=== PATIENT | male | born 1990 | race Caucasian/White ===

== ENCOUNTER 2023-11-10 17:53 | Emergency (ER) | payer OTHER, SELFPAY ==
[2023-11-10 17:56] VITALS: BP 129/80; PULSE 64; RESP 20; TEMP 36.9; O2SAT 100; BMI 23.0
[2023-11-10] MEDS: ADACEL DIPH,PERTUSS(ACELL),TET VAC/PF 0.5 ML ADULT SYRINGE IM (18:30)
--- NOTE | 2023-11-10 18:31 | ED_ITS ---
HPI - Wound/Laceration General Chief Complaint: Wound/Laceration Stated Complaint: Lacerations Time Seen by Provider: 11/10/23 18:01 Source: patient Mode of arrival: walk-in Limitations: no limitations History of Present Illness HPI narrative: Patient is a 32-year-old male presents to the emergency department for the evaluation of a small laceration to the volar left forearm, patient sustained a 1.5 cm laceration to the left volar forearm while attempting to cut a zip tie for his son's Marielena present with a pocket knife. Bleeding is well- controlled. Last tetanus approximately 10 years ago. No other associated injuries. Related Data Home Medications Medication Instructions Recorded Confirmed diazepam 10 mg tablet mg 11/10/23 sertraline 100 mg tablet 100 mg PO DAILY 11/10/23 11/10/23 Allergies Allergy/AdvReac Type Severity Reaction Status Date / Time No Known Drug Allergies Allergy Verified 11/10/23 17:58 Review of Systems ROS Constitutional Denies: fever or chills Ears, nose, mouth, and throat Denies: throat pain Cardiovascular Denies: chest pain Respiratory Denies: shortness of breath Gastrointestinal Denies: nausea or vomiting Musculoskeletal Denies: extremity pain or extremity swelling Integumentary/Breast Denies: rash Neurological Denies: headache PFSH PFSH Social History Smoking status: Heavy tobacco smoker Exam Narrative Exam Narrative: Gen.: Awake, alert, in no distress Head: Normocephalic, atraumatic ENT: Moist mucous membranes Respiratory: No respiratory distress Extremities: Moves extremities equally, 1.5 cm laceration of the left volar forearm with subcutaneous tissue exposure. No laceration of any vasculature noted, no tendon or bony exposure Psych: Normal mood and affect Neuro: No focal neuro deficit Skin: Warm, dry Constitutional Vital Signs, click to edit/add: Last Vital Signs Temp 98.5 F 11/10/23 17:56 Pulse 64 11/10/23 17:56 Resp 20 11/10/23 17:56 BP 129/80 11/10/23 17:56 Pulse Ox 100 11/10/23 17:56 Course Vital Signs Vital signs: Vital Signs Temperature 98.5 F 11/10/23 17:56 Pulse Rate 64 11/10/23 17:56 Respiratory Rate 20 11/10/23 17:56 Blood Pressure 129/80 11/10/23 17:56 Pulse Oximetry 100 11/10/23 17:56 Temperature 98.5 F 11/10/23 17:56 Pulse Rate 64 11/10/23 17:56 Respiratory Rate 20 11/10/23 17:56 Blood Pressure 129/80 11/10/23 17:56 Pulse Oximetry 100 11/10/23 17:56 MDM - Wound/Laceration MDM Narrative Medical decision making narrative: Laceration repair: Done under sterile conditions. The use of Shur-Clens prep the area. Local injection with lidocaine 1% was used, approximately 3 cc. The wound was irrigated copiously with normal saline. The wound was explored there was no evidence of foreign material. The laceration was approximated with 4-0 nylon. 2 simple interrupted sutures were placed. Patient tolerated the procedure well. The patient was neurovascularly intact post. the patient had bacitracin applied to the laceration and a dry sterile dressing was place. The patient will need to follow-up in the next 7-10 days for removal Tetanus updated in the ER. Please see procedure note for details for suture repair. Follow-up with PCP for suture removal in 7 to 10 days and return to the ER if symptoms change or worsen Medical Records Attestation: I reviewed the patient's medical records. Discharge Plan Discharge Chief Complaint: Wound/Laceration Clinical Impression: Laceration Patient Disposition: Home, Self-Care Time of Disposition Decision: 18:30 Condition: Good Prescriptions / Home Meds: No Action sertraline 100 mg tablet 100 mg PO DAILY diazepam 10 mg tablet Instructions: Care For Your Stitches (ED), Laceration (ED) Additional Instructions: Sutures removed in 7 to 10 days with your PCP Stand Alone Forms: Portal Instructions Referrals: Bhavik Walton MD [Primary Care Provider] - 1 week Discharge Date/Time: 11/10/23 18:38
[2023-11-10] MEDS: BACITRACIN 0.9 GM PACKET 1 PACKET TOPICAL (18:34)
[2023-11-10] MEDS: LIDOCAINE HCL 1% 100 MG/10 ML MDV INJ (18:34)
== END 2023-11-10 18:38 | disposition home or self-care (01) ==
PROVIDERS: Emergency Provider Emergency Medicine; PCP Family Medicine
DX: S51.812A Laceration without foreign body of left forearm, initial encounter (principal); W26.0XXA Contact with knife, initial encounter; Z79.899 Other long term (current) drug therapy; F17.210 Nicotine dependence, cigarettes, uncomplicated; Z23 Encounter for immunization
CPT/HCPCS: 12001; 90471; 90715; 99283

== ENCOUNTER 2024-01-16 09:11 | Outpatient (OUT) | payer OTHER, SELFPAY ==
--- OUTSIDE RECORDS SUMMARY | 2024-01-16 09:15 | XMS_ITS | CCD ---
Author Name Unknown Address [id number] [place] [address] Organization [facility] Care Team Providers Care Technical Aide Name Role Phone KI SCHWARTZ Unavailable Unavailable KI SCHWARTZ Unavailable Unavailable NONE, Unavailable Unavailable TIMMIS, DR CASH Attending Unavailable TIMMIS, DR CASH Consulting Unavailable HOY, DR ACOSTA Primary Care Unavailable TIMMIS, DR CASH Admitting Unavailable TIMMIS, DR CASH Attending Unavailable TIMMIS, DR CASH Consulting Unavailable HOY, DR ACOSTA Primary Care Unavailable TIMMIS, DR CASH Admitting Unavailable LONGDANIELA Consulting Unavailable HOY, DR ACOSTA Consulting Unavailable HOY, DR ACOSTA Primary Care Unavailable HOY, DR ACOSTA Admitting Unavailable HOY, DR ACOSTA Attending Unavailable HOY, DR ACOSTA Primary Care Unavailable HOY, DR ACOSTA Admitting Unavailable HOY, DR ACOSTA Attending Unavailable HOY, DR ACOSTA Primary Care Unavailable HOY, DR ACOSTA Admitting Unavailable HOY, DR ACOSTA Attending Unavailable TIMMIS, DR CASH Consulting Unavailable TIMMIS, DR CASH Admitting Unavailable HOY, DR ACOSTA Primary Care Unavailable TIMMIS, DR CASH Attending Unavailable LUCIAJIHAN LARSON Consulting Unavailable Dave Walton Primary Care Physician [phone] Ayana Burgess Attending Unavailable Ayana Burgess Attending Unavailable Allergies Allergy Classification Reported Allergen(s) Allergy Type Date of Onset Reaction(s) Facility (1 source) clindamycin Drug Allergy [facility] Repository (1 source) No Known Drug Allergies Drug allergy (disorder) [facility] Repository (1 source) No Known Food Allergies; Translations: [No Known Food Allergies] Food allergy (disorder) [facility] Repository (1 source) No Known Medication Allergies; Translations: [No Known Medication Allergies] Propensity to adverse reactions (disorder) [facility] Repository Medications Current Medications Medication Drug Class(es) Dates Sig (Normalized) Sig (Original) sertraline 100 mg oral tablet (2 sources) Serotonin Reuptake Inhibitor Start: 03-09-2023 take 1 mg by mouth once daily sertraline 100 mg Tab mg tab(s), Oral, Daily, Refills(s) 0 Start Date: 03/09/23 Status: Ordered traMADol hydrochloride 50 mg oral tablet (1 source) Opioid Agonist Start: 05-04-2023 take 1 tablet by mouth every six hours as needed for pain traMADOL 50 mg Tab 50 mg = 1 tab(s), Oral, q6hr, PRN as needed for pain, # 4 tab(s), Refills(s) 0, Pharmacy: [facility]/pharmacy #[id number], 178, cm, 03/11/23 10:06:00 EDT, Height/Length Dosing, 77, kg, 03/11/23 10:05:00 EDT, Weight Dosing Start Date: 05/04/23 Status: Ordered Completed/Discontinued Medications Medication Drug Class(es) Dates Sig (Normalized) Sig (Original) bacitracin 0.4 unt/mg / neomycin 0.0035 mg/mg / polymyxin b 10 unt/mg / pramoxine hydrochloride 0.01 mg/mg topical ointment (2 sources) Aminoglycoside Antibacterial, Polymyxin-class Antibacterial Start: 03-09-2023 bacitracin/neomy fiorella/polymyxin B/pramoxine topical 400 units-3.5 mg-10,000 units-10 mg/g ointment Topical, BID, Refill(s) 0 Start Date: 03/09/23 Status: Ordered Problems Active Problems Problem Classification Problem Date Documented Date Episodic/Chronic Anxiety disorders (1 source) Other specified anxiety disorders; Translations: [OTHER SPECIFIED ANXIETY DISORDERS] Onset: 08-26-2021 Chronic Contraceptive and procreative management (3 sources) Contraception status; Translations: [Encounter for other general counseling and advice on contraception] Onset: 03-11-2023 Episodic Mood disorders (1 source) Major depressive disorder, single episode, unspecified; Translations: [CINDY DEPRESS D/O SINGLE EPIS UNS] Onset: 07-15-2021 Chronic Residual codes; unclassified (1 source) Sleep apnea, unspecified; Translations: [SLEEP APNEA UNSPECIFIED] Onset: 08-26-2021 Chronic Residual codes; unclassified (4 sources) Obstructive sleep apnea (adult) (pediatric); Translations: [OBSTRUCTIVE SLEEP APNEA] Onset: 07-24-2021 Chronic Unclassified (1 source) PERSONAL HISTORY OF COVID-19; Translations: [PERSONAL HISTORY OF COVID-19] Onset: 08-26-2021 Unclassified (1 source) CONTACT W/AND (SUSP) EXPOS COVID-19; Translations: [CONTACT W/AND (SUSP) EXPOS COVID-19] Onset: 08-23-2021 Unclassified (2 sources) Patient encounter status 03-11-2023 Past or Other Problems Problem Classification Problem Date Documented Da te Episodic/Chronic Malaise and fatigue (1 source) Other fatigue; Translations: [OTHER FATIGUE] Onset: 07-15-2021 Episodic Other aftercare (1 source) 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; Translations: [OTH [facility] CURRENT DRUG THERAPY] Onset: 08-26-2021 Episodic Other lower respiratory disease (4 sources) Snoring; Translations: [SNORING] Onset: 07-09-2021 Episodic Other upper respiratory disease (5 sources) Deviated nasal septum; Translations: [DEVIATED NASAL SEPTUM] Onset: 08-19-2021 Episodic Other upper respiratory disease (1 source) Hypertrophy of nasal turbinates; Translations: [HYPERTROPHY OF NASAL TURBINATES] Onset: 08-26-2021 Episodic Results Test Name Value Interpretation Reference Range Facility Consent for Procedure/Surger [facility] 05-11-2023 Consent for Procedure/Surgery [id number] .[id number]:127 Normal [facility] Ambulatory Visit Summaryon 0 05-08-2023 Ambulatory Visit Summary ЕКАТЕРИНА JORGENSENY Laurence :1990 Visit Date:05/08/2023 Ambulatory Visit Instructions Your Diagnosis Encounter for vasectomy Your Care Team Attending Physician - Aditya TOLEDO, Ayana Meraz Primary Care Physician - Dave Walton MD This Is Your Medications List Contact prescribing physician if questions or concerns bacitracin/neomycin/p olymyxin B/pramoxine top (bacitracin/neomycin/ polymyxin B/pramoxine topical 400 units-3.5 mg-10,000 units-10 mg/g ointment) sertraline (sertraline 100 mg Tab) tramadol (traMADOL 50 mg Tab) [Image Removed: STOP]Stop taking these medications diazepam (Valium 10 mg Tab) Procedures Performed Vasectomy (05/08/2023), Knee, Splenectomy. Discharge Vitals Heart Rate (Peripheral) 48 Blood Pressure 112/80 Height 178 cm Height 70 in Weight 77 kg Weight 169.4 lb BMI 24.3 What to do next You Need to Schedule the Following Appointments Follow Up with Aditya TOLEDO, IVORY Craig, URO When: Comments: PRN Where: Medications What How Much When Instructions Unchanged bacitracin/ neomycin/ polymyxin B/ pramoxine top (bacitracin/ neomycin/ polymyxin B/ pramoxine topical 400 units-3.5 mg-10,000 units-10 mg/ g ointment) Topical 2 times a day Contact prescribing physician if questions or concerns Unchanged sertraline (sertraline 100 mg Tab) By Mouth Every day Contact prescribing physician if questions or concerns Unchanged tramadol (traMADOL 50 mg Tab) 1 Tablets By Mouth Every 6 hours as needed for as needed for pain Contact prescribing physician if questions or concerns What How Much When Comments Stop Taking diazepam (Valium 10 mg Tab) See instructions take 1 hour prior to scheduled procedure if needed Allergies No Known Medication Allergies Problems Ongoing - Any problem that you are currently receiving treatment for. Encounter for vasectomy Encounter for vasectomy assessment Education Materials Vasectomy, Care After This sheet gives you information about how to care for yourself after your procedure. Your health care provider may also give you more specific instructions. If you have problems or questions, contact your health care provider. What can I expect after the procedure? After the procedure, it is common to have: ? Mild pain, swelling, or discomfort in your scrotum or redness on your scrotum. ? Some blood coming from your incisions or puncture sites for 1 or 2 days. ? Blood in your semen. Follow these instructions at home: Medicines ? Take slqf-waq-huvjtgk and prescription medicines only as told by your health care provider. ? Avoid taking any medicines that contain aspirin or NSAIDs, such as ibuprofen. These medicines can make bleeding worse. Activity ? For the first 2 days after surgery, avoid physical activity and exercise that requires a lot of energy. Ask your health care provider what activities are safe for you. ? Do not take part in sports or perform heavy physical labor until your pain has improved, or until your health care provider says it is okay. ? You may have limits on the amount of weight you can lift as told by your health care provider. ? Do not ejaculate for at least 1 week after the procedure, or for as long as you are told. ? You may resume sexual activity 7?10 days after your procedure, or when your health care provider approves. Use a different method of control (contraception) until you have had test results that confirm that there is no sperm in your semen. Scrotal support ? Use scrotal support, such as a jockstrap or underwear with a supportive pouch, as needed for 1 week after your procedure. ? If you feel discomfort in your scrotum, you may remove the scrotal support to see if the discomfort is relieved. Sometimes scrotal support can press on the scrotum and cause or worsen discomfort. ? If your skin gets irritated, you may add some germ-free (sterile), fluffed bandages or a clean washcloth to the scrotal support. Managing pain and swelling If directed, put ice on the affected area. To do this: ? Put ice in a plastic bag. ? Place a towel between your skin and the bag. ? Leave the ice on for 20 minutes, 2?3 times a day. ? Remove the ice if your skin turns bright red. This is very important. If you cannot feel pain, heat, or cold, you have a greater risk of damage to the area. General instructions ? Check your incisions or puncture sites every day for signs of infection. Check for: ? Redness, swelling, or more pain. ? Fluid or blood. ? Warmth. ? Pus or a bad smell. ? Leave stitches (sutures) in place. The sutures will dissolve on their own and do not need to be removed. ? Keep all follow-up visits. This is important because you will need a test to confirm that there is no sperm in your semen. Multiple ejaculations are needed to clear out sperm that were beyond the vasectomy site. You will (more content not included)... Normal [facility] Patient Educationon 05-08-20 Patient Education Urology Vasectomy, Care After This sheet gives you information about how to care for yourself after your procedure. Your health care provider may also give you more specific instructions. If you have problems or questions, contact your health care provider. What can I expect after the procedure? After the procedure, it is common to have: ? Mild pain, swelling, or discomfort in your scrotum or redness on your scrotum. ? Some blood coming from your incisions or puncture sites for 1 or 2 days. ? Blood in your semen. Follow these instructions at home: Medicines ? Take vcra-quj-hyljado and prescription medicines only as told by your health care provider. ? Avoid taking any medicines that contain aspirin or NSAIDs, such as ibuprofen. These medicines can make bleeding worse. Activity ? For the first 2 days after surgery, avoid physical activity and exercise that requires a lot of energy. Ask your health care provider what activities are safe for you. ? Do not take part in sports or perform heavy physical labor until your pain has improved, or until your health care provider says it is okay. ? You may have limits on the amount of weight you can lift as told by your health care provider. ? Do not ejaculate for at least 1 week after the procedure, or for as long as you are told. ? You may resume sexual activity 7?10 days after your procedure, or when your health care provider approves. Use a different method of control (contraception) until you have had test results that confirm that there is no sperm in your semen. Scrotal support ? Use scrotal support, such as a jockstrap or underwear with a supportive pouch, as needed for 1 week after your procedure. ? If you feel discomfort in your scrotum, you may remove the scrotal support to see if the discomfort is relieved. Sometimes scrotal support can press on the scrotum and cause or worsen discomfort. ? If your skin gets irritated, you may add some germ-free (sterile), fluffed bandages or a clean washcloth to the scrotal support. Managing pain and swelling If directed, put ice on the affected area. To do this: ? Put ice in a plastic bag. ? Place a towel between your skin and the bag. ? Leave the ice on for 20 minutes, 2?3 times a day. ? Remove the ice if your skin turns bright red. This is very important. If you cannot feel pain, heat, or cold, you have a greater risk of damage to the area. General instructions ? Check your incisions or puncture sites every day for signs of infection. Check for: ? Redness, swelling, or more pain. ? Fluid or blood. ? Warmth. ? Pus or a bad smell. ? Leave stitches (sutures) in place. The sutures will dissolve on their own and do not need to be removed. ? Keep all follow-up visits. This is important because you will need a test to confirm that there is no sperm in your semen. Multiple ejaculations are needed to clear out sperm that were beyond the vasectomy site. You will need one test result showing that there is no sperm in your semen before you can resume unprotected sex. This may take 2?4 months after your procedure. ? If you were given a sedative during the procedure, it can affect you for several hours. Do not drive or operate machinery until your health care provider says that it is safe. Contact a health care provider if: ? You have redness, swelling, or more pain around an incision or puncture site, or in your scrotum area. ? You have bleeding from an incision or puncture site. ? You have pus or a bad smell coming from an incision or puncture site. ? You have a fever. ? An incision or puncture site opens up. Get help right away if: ? You develop a rash. ? You have trouble breathing. Summary ? After your procedure, it is common to have mild pain, swelling, redness, or discomfort in your scrotum. ? For the first 2 days after surgery, avoid physical activity and exercise that requires a lot of energy. ? Put ice on the affected area. Leave the ice on for 20 minutes, 2?3 times a day. ? If you were given a sedative during the procedure, it can affect you for several hours. Do not drive or operate machinery until your health care provider says that it is safe. This information is not intended to replace advice given to you by your health care provider. Make sure you discuss any questions you have with your health care provider. Document Revised: 03/21/2021 Document Reviewed: 03/21/2021 [employer] Patient Education ? 2022 [employer] [facility] [facility] Urology Office/Clinic Noteon 05-08-2023 Urology Office/Clinic Note Chief Complaint Vasectomy HPI Staff Vasectomy History of Present Illness Tests reviewed: none I have reviewed the previous health record information and history for this patient from Dr. Burgess. I have reviewed and verified the staff HPI to be accurate for this encounter. There have been no associated fever, chills, flank pain, or blood in the urine. Denies any urinary infections since last encounter. Review of Systems PHQ Score Initial Depression Screen Score: 0 ROS - Provider Constitutional: denies weight loss, denies hot flashes. Eyes: denies eye problems. Gastrointestinal: denies nausea, denies vomiting. Cardiovascular: denies chest pain or angina. Integumentary: no dryness Musculoskeletal: denies musculoskeletal symptoms. ENMT: denies otolaryngeal symptoms. Respiratory: no shortness of breath. Heme/Lymph: denies easy bleeding tendency, denies easy bruising tendency. Psychiatric: no confusion, no anxiety. Genitourinary: See HPI. Physical Exam Vitals & Measurements HR: 48(Peripheral) BP: 112/80 HT: 70 in HT: 178 cm WT: 77 kg WT: 169.4 lb BMI: 24.3 General Appearance: alert, no distress, well nourished, well developed male. Genitourinary: normal scrotum, normal testes, normal urethra, normal epididymis, normal vas deferens/spermatic cord. Flank Pain: none. Bladder: nonpalpable. Procedure PREOPERATIVE DIAGNOSIS: Undesired fertility. POSTOPERATIVE DIAGNOSIS: Undesired fertility. PROCEDURE PERFORMED: Bilateral Vasectomy. ANESTHESIA: Local. ESTIMATED BLOOD LOSS: minimal BRIEF HISTORY: The patient is a 32 year-old gentleman with undesired fertility. He was counseled on all of his options and ultimately elected a vasectomy. He understood the risks of the procedure to include but not be limited to bleeding, pain, infection, injury to the testicle, surrounding structures, atrophy of the testicle, loss of testicular function, persistence of pain or need for further procedures. He understands he will need to use alternative method of contraception until his post-vasectomy semen analysis has been reviewed and he has been cleared by the physician. DESCRIPTION OF PROCEDURE: After informed consent was obtained, the patient was taken to the procedure room. The patient was placed in the supine position, taking care to pad all possible pressure points. A sterile prep and drape was performed in standard fashion for this procedure. The right vas deferens was easily palpated and delivered anteriorly. Local anesthetic was applied to the skin and vas deferens for a vasal block. This was repeated on the left side. Starting with the right, the vas was palpated, delivered anteriorly and a ring clamp was applied to isolate the vas. With the overlying skin on tension, a single tip of the sharp dissecting forceps was used to make a puncture into the vas, taking care not to transect it. The forceps were used to spread the opening to expose the vas and deliver it through the opening. The loop of vas was regrasped using a ring clamp and a window was created by dissecting the fascia and vessels away from the vas. I proceeded with mucosal electrocautery of both ends with fascial interposition. Elongated tip wire loop electrocautery was inserted at least 1 cm into the lumen of the abdominal side of the vas to cauterize and occlude the lumen. The vas was transected and the abdominal end of the vas was allowed to retract within the sheath. I proceeded with closing the fascial sheath over the abdominal end by grasping the fascial edges and applying a metal clip. Minimal length of the testicular end was excised until intact vas was encountered, electrocautery tip was inserted at least 1 cm into the testicular side lumen for occlusion. Again, the area was inspected to ensure adequate hemostasis and the vas was allowed to retract back into the wound. The left vas was isolated and occluded by the steps above in the same fashion. Pressure was held on the opening for 5 minutes with gauze and inspected to ensure hemostasis was achieved. Sterile gauze and tape were applied over the surgical site. Scrotal support was applied. The patient tolerated the procedure well. Assessment/Plan 1. Encounter for vasectomy (Z30.2: Encounter for sterilization) Pt had IO vasectomy today without complications. The patient tolerated the procedure well without complications. He should refrain from strenuous activity for the next 4-5 days and ice the scrotum as needed. The antibiotic course should be completed. The post-vasectomy instruction sheet is given to the patient. 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 Pain medicines have been provided. He is aware that he is not sterile until he has a negative semen analysis which will be checked after about two months and after 20-30 ejaculations. -Order and cup provided for post vasectomy semen analysis. He should deliver the semen specimen to the lab within 30 min. of ejaculation and he will call one week later to get the r (more content not included)... [facility] Comment on above: Result Comment: Elec tronically Signed By: Ayana Burgess MD\.br\Date and Time Signed: 05/08/23 13:14 EDT\.br\Electronically Co-Signed By: Ciarra Smart\.br\Date and Time Co-Signed: 05/08/23 13:11 EDT Physician Referralon 023 Physician Referral [id number]:127 [facility] Physician Referral [id number] .[id number]:127 [facility] Screenson 03-12-2023 Screens [id number]:127 [facility] Patient Educationon 03-11-20 Patient Education Urology Vasectomy, Care After This sheet gives you information about how to care for yourself after your procedure. Your health care provider may also give you more specific instructions. If you have problems or questions, contact your health care provider. What can I expect after the procedure? After the procedure, it is common to have: ? Mild pain, swelling, or discomfort in your scrotum or redness on your scrotum. ? Some blood coming from your incisions or puncture sites for 1 or 2 days. ? Blood in your semen. Follow these instructions at home: Medicines ? Take qsri-ilw-snpyjiu and prescription medicines only as told by your health care provider. ? Avoid taking any medicines that contain aspirin or NSAIDs, such as ibuprofen. These medicines can make bleeding worse. Activity ? For the first 2 days after surgery, avoid physical activity and exercise that requires a lot of energy. Ask your health care provider what activities are safe for you. ? Do not take part in sports or perform heavy physical labor until your pain has improved, or until your health care provider says it is okay. ? You may have limits on the amount of weight you can lift as told by your health care provider. ? Do not ejaculate for at least 1 week after the procedure, or for as long as you are told. ? You may resume sexual activity 7?10 days after your procedure, or when your health care provider approves. Use a different method of control (contraception) until you have had test results that confirm that there is no sperm in your semen. Scrotal support ? Use scrotal support, such as a jockstrap or underwear with a supportive pouch, as needed for 1 week after your procedure. ? If you feel discomfort in your scrotum, you may remove the scrotal support to see if the discomfort is relieved. Sometimes scrotal support can press on the scrotum and cause or worsen discomfort. ? If your skin gets irritated, you may add some germ-free (sterile), fluffed bandages or a clean washcloth to the scrotal support. Managing pain and swelling If directed, put ice on the affected area. To do this: ? Put ice in a plastic bag. ? Place a towel between your skin and the bag. ? Leave the ice on for 20 minutes, 2?3 times a day. ? Remove the ice if your skin turns bright red. This is very important. If you cannot feel pain, heat, or cold, you have a greater risk of damage to the area. General instructions ? Check your incisions or puncture sites every day for signs of infection. Check for: ? Redness, swelling, or more pain. ? Fluid or blood. ? Warmth. ? Pus or a bad smell. ? Leave stitches (sutures) in place. The sutures will dissolve on their own and do not need to be removed. ? Keep all follow-up visits. This is important because you will need a test to confirm that there is no sperm in your semen. Multiple ejaculations are needed to clear out sperm that were beyond the vasectomy site. You will need one test result showing that there is no sperm in your semen before you can resume unprotected sex. This may take 2?4 months after your procedure. ? If you were given a sedative during the procedure, it can affect you for several hours. Do not drive or operate machinery until your health care provider says that it is safe. Contact a health care provider if: ? You have redness, swelling, or more pain around an incision or puncture site, or in your scrotum area. ? You have bleeding from an incision or puncture site. ? You have pus or a bad smell coming from an incision or puncture site. ? You have a fever. ? An incision or puncture site opens up. Get help right away if: ? You develop a rash. ? You have trouble breathing. Summary ? After your procedure, it is common to have mild pain, swelling, redness, or discomfort in your scrotum. ? For the first 2 days after surgery, avoid physical activity and exercise that requires a lot of energy. ? Put ice on the affected area. Leave the ice on for 20 minutes, 2?3 times a day. ? If you were given a sedative during the procedure, it can affect you for several hours. Do not drive or operate machinery until your health care provider says that it is safe. This information is not intended to replace advice given to you by your health care provider. Make sure you discuss any questions you have with your health care provider. Document Revised: 03/21/2021 Document Reviewed: 03/21/2021 [employer] Patient Education ? 2022 [employer]. Normal [facility] Covid-19 PCR (CVDTBH)on SARS-CoV-2 (COVID-19) RNA SRAVANI+probe Ql (Unsp spec) Not detected Normal NOT DETECTED [facility] Comment on above: Result Comment: This test is not yet approved or cleared by the [place] FDA. When there are no FDA-approved or cleared tests available, and other criteria are met, FDA can make tests available under an emergency access mechanism called an Emergency Use Authorization (EUA). The EUA for this test is supported by the Bench Manager of Health and Human Service's (HHS's) declaration that circumstances exist to justify the emergency use of in vitro diagnostics for the detection and/or diagnosis of the virus that causes COVID-19. This EUA will remain in effect (meaning this test can be used) for the duration of the COVID-19 declaration justifying emergency of IVDs, unless it is terminated or revoked by FDA (after which the test may no longer be used). When diagnostic testing is negative, the possibility of a false negative should be considered in the context of a patient's recent exposures and the presence of clinical signs and symptoms consistent with SARS-CoV-2. Performed By: #### C VDTBH #### [facility] [address] [place] [address] Dr. Irma De Paz BNPon 08-13-2021 Natriuretic peptide B (Bld) [Mass/Vol] 77.0 pg/mL Normal <=450.0 [facility] Comment on above: Performed By: #### B ASSISTANT GROCERY, CMP #### [facility] [address] [place] [address] Dr. Irma De Paz CBC AUTO DIFFon 08-13-2021 BASO # 0.1 103/ul Normal 0.0-0.1 [facility] Comment on above: Performed By: #### C BC #### [facility] [address] [place] [address] Dr. Irma De Paz Basophils/100 WBC (Bld) 1.2 % Normal 0.2-2.0 [facility] Comment on above: Performed By: #### C BC #### [facility] [address] [place] [address] Dr. Irma De Paz EO # 0.3 103/ul Normal 0.0-0.7 [facility] Comment on above: Performed By: #### C BC #### [facility] [address] [place] [address] Dr. Irma De Paz Eosinophils/100 WBC (Bld) 3.1 % Normal 0.9-7.0 [facility] Comment on above: Performed By: #### C BC #### [facility] [address] [place] [address] Dr. Irma De Paz Erythrocyte distribution width (RBC) [Ratio] 12.3 % Normal 11.0-15.0 [facility] Comment on above: Performed By: #### C BC #### [facility] [address] [place] [address] Dr. Irma De Paz Hematocrit (Bld) [Volume fraction] 41.3 % Critically low 42.0-54.0 [facility] Comment on above: Performed By: #### C BC #### [facility] [address] [place] [address] Dr. Irma De Paz Hemoglobin (Bld) [Mass/Vol] 14.5 g/dL Normal 14.0-18.0 [facility] Comment on above: Performed By: #### C BC #### [facility] [address] [place] [address] Dr. Irma De Paz IG # 0.02 10e3/ul Normal 0.00-0.03 [facility] Comment on above: Performed By: #### C BC #### [facility] [address] [place] [address] Dr. Irma De Paz IG % 0.2 % Normal 0.0-0.5 [facility] Comment on above: Performed By: #### C BC #### [facility] [address] [place] [address] Dr. Irma De Paz LYMPH # 3.6 103/ul Normal 1.2-3.8 [facility] Comment on above: Performed By: #### C BC #### [facility] [address] [place] [address] Dr. Irma De Paz Lymphocytes/100 WBC (Bld) 36.3 % Normal 20.5-60.0 [facility] Comment on above: Performed By: #### C BC #### [facility] [address] [place] [address] Dr. Irma De Paz MANUAL DIFF REQ NO Normal [facility] Comment on above: Performed By: #### C BC #### [facility] [address] [place] [address] Dr. Irma De Paz MCH (RBC) [Entitic mass] 32.9 pg Normal 25.9-34.0 [facility] Comment on above: Performed By: #### C BC #### [facility] [address] [place] [address] Dr. Irma De Paz MCHC (RBC) [Mass/Vol] 35.1 g/dL Normal 29.9-35.2 [facility] Comment on above: Performed By: #### C BC #### [facility] [id number] Irma De Paz MCV (RBC) [Entitic vol] 93.7 fL Normal 80.0-94.0 [facility] Comment on above: Performed By: #### C BC #### [facility] [id number] [address] Irma De Paz MONO # 1.1 103/ul Critically high 0.3-0.8 [facility] Comment on above: Performed By: #### C BC #### [facility] [id number] Irma De Paz Monocytes/100 WBC (Bld) 11.4 % Normal 1.7-12.0 [facility] Comment on above: Performed By: #### C BC #### [facility] [address] [place] [address] Dr. Irma De Paz NEUT # 4.8 103/ul Normal 1.4-6.5 [facility] Comment on above: Performed By: #### C BC #### [facility] [address] [place] [address] Dr. Irma De Paz Neutrophils/100 WBC (Bld) 47.8 % Normal 43.0-75.0 [facility] Comment on above: Performed By: #### C BC #### [facility] [address] [place], [place] [phone] Dr. Irma De Paz Platelet mean volume (Bld) [Entitic vol] 9.2 fL Critically low 9.5-13.5 [facility] Comment on above: Performed By: #### C BC #### [facility] [address] [place] [address] Dr. Irma De Paz PLT 410 103/ul Normal 150-450 [facility] Comment on above: Performed By: #### C BC #### [facility] [address] [place], [place] [phone] Dr. Irma De Paz RBC 4.41 106/ul Critically low 4.70-6.10 [facility] Comment on above: Performed By: #### C BC #### [facility] [address] [address] [address] Irma De Paz WBC 10.0 103/ul Normal 4.0-11.0 [facility] Comment on above: Performed By: #### C BC #### [facility] [address] [address] [address] Irma De Paz D-DIMERon 08-13-2021 D-DIMER 2.56 mg/L FEU Critically high 0.19-0.50 [facility] Comment on above: Performed By: #### D DIM ####[facility] [id number] [id number]. Irma De Paz D-DIMER COMMENTS SEE BELOW Normal [facility] Comment on above: Result Comment: Incr eases in D-Dimer concentration observed with thromboembolic events can be variable due to localization, size, and age of the thrombus. Therefore, a thromboembolic event cannot be diagnosed with certainty on the basis of the reference range. D-Dimers may also be elevated for a variety of disorders including: advanced age, , coronary disease, cancer, liver disease, infection, inflammation, hematoma, DIC, trauma, post-surgery, diabetes, thrombolytic or anticoagulant therapy, stress, and generalized hospitalization. Performed By: #### D DIM ####[facility] [id number] [id number]. Irma De Paz PROF 14(COMP METB)on 021 Albumin [Mass/Vol] 4.1 g/dL Normal 3.5-5.0 [facility] Comment on above: Performed By: #### B ASSISTANT GROCERY, CMP #### [facility] [address] [place] [address] Dr. Irma De Paz Albumin/Globulin [Mass ratio] 1.2 {ratio} Normal [facility] Comment on above: Performed By: #### B ASSISTANT GROCERY, CMP #### [facility] [address] [place] [address] Dr. Irma De Paz ALP [Catalytic activity/Vol] 95 U/L Normal 38-126 [facility] Comment on above: Performed By: #### B ASSISTANT GROCERY, CMP #### [facility] [address] [place] [address] Dr. Irma De Paz ALT [Catalytic activity/Vol] 21 U/L Normal 21-72 [facility] Comment on above: Performed By: #### B ASSISTANT GROCERY, CMP #### [facility] [address] [place] [address] Dr. Irma De Paz Anion gap [Moles/Vol] 9.0 mmol/L Normal [facility] Comment on above: Performed By: #### B ASSISTANT GROCERY, CMP #### [facility] [address] [place] [address] Dr. Irma De Paz AST [Catalytic activity/Vol] 19 U/L Normal 17-59 [facility] Comment on above: Performed By: #### B ASSISTANT GROCERY, CMP #### [facility] [address] [place] [address] Dr. Irma De Paz Bilirubin [Mass/Vol] 0.6 mg/dL Normal 0.2-1.3 [facility] Comment on above: Performed By: #### B ASSISTANT GROCERY, CMP #### [facility] [address] [place] [address] Dr. Irma De Paz Calcium [Mass/Vol] 9.2 mg/dL Normal 8.4-10.2 [facility] Comment on above: Performed By: #### B ASSISTANT GROCERY, CMP #### [facility] [address] [place] [address] Dr. Irma De Paz Chloride [Moles/Vol] 106 mmol/L Normal 98-107 [facility] Comment on above: Performed By: #### B ASSISTANT GROCERY, CMP #### [facility] [address] [place] [address] Dr. Irma De Paz CO2 [Moles/Vol] 27.8 mmol/L Normal 22.0-30.0 [facility] Comment on above: Performed By: #### B ASSISTANT GROCERY, CMP #### [facility] [address] [place] [address] Dr. Irma De Paz Creatinine [Mass/Vol] 0.88 mg/dL Normal 0.66-1.25 [facility] Comment on above: Performed By: #### B ASSISTANT GROCERY, CMP #### [facility] [address] [place] [address] Dr. Irma De Paz EGFR-AF PORTUGUESE >60 Normal >=60 [facility] Comment on above: Performed By: #### B ASSISTANT GROCERY, CMP #### [facility] [address] [place] [address] Dr. Irma De Paz EGFR-NON AF PORTUGUESE >60 Normal >=60 [facility] Comment on above: Performed By: #### B ASSISTANT GROCERY, CMP #### [facility] [address] [address] [address] Irma De Paz Globulin (S) [Mass/Vol] 3.3 g/dL Normal [facility] Comment on above: Performed By: #### B ASSISTANT GROCERY, CMP #### [facility] [address] [place] [address] Dr. Irma De Paz Glucose [Mass/Vol] 92 mg/dL Normal 74-106 [facility] Comment on above: Performed By: #### B ASSISTANT GROCERY, CMP #### [facility] [address] [place] [address] Dr. Irma De Paz Potassium [Moles/Vol] 3.8 mmol/L Normal 3.4-5.0 [facility] Comment on above: Performed By: #### B ASSISTANT GROCERY, CMP #### [facility] [address] [place] [address] Dr. Irma De Paz Protein [Mass/Vol] 7.4 g/dL Normal 6.1-8.2 [facility] Comment on above: Performed By: #### B ASSISTANT GROCERY, CMP #### [facility] [address] [place] [address] Dr. Irma De Paz Sodium [Moles/Vol] 139 mmol/L Normal 137-145 [facility] Comment on above: Performed By: #### B ASSISTANT GROCERY, CMP #### [facility] [address] [place] [address] Dr. Irma De Paz Urea nitrogen [Mass/Vol] 15.0 mg/dL Normal 9.0-20.0 [facility] Comment on above: Performed By: #### B ASSISTANT GROCERY, CMP #### [facility] [address] [place] [address] Dr. Irma De Paz Urea nitrogen/Creatinine [Mass ratio] 17.0 mg/mg Normal [facility] Comment on above: Performed By: #### B ASSISTANT GROCERY, CMP #### [facility] [address] [place] [address] Dr. Irma De Paz PROTIMEon 08-13-2021 INR Coag (PPP) [Relative time] 0.99 {INR} Normal [facility] Comment on above: Performed By: #### P TT, PT #### [facility] [address] [place] [address] Dr. Irma De Paz INR GUIDELINES SEE BELOW Normal [facility] Comment on above: Result Comment: BRI RED INR: 2.0 - 3.0 CONDITIONS NOT LISTED BELOW 2.5 - 3.5 FOR PROSTHETIC HEART VALVE REPLACEMENT 2.5 - 3.5 RECURRENT THROMBOSIS Performed By: #### P TT, PT #### [facility] [address] [place] [address] Dr. Irma De Paz PT Coag (PPP) [Time] 10.7 s Normal 9.0-11.6 [facility] Comment on above: Performed By: #### P TT, PT #### [facility] [address] [place] [address] Dr. Irma De Paz PTTon 08-13-2021 aPTT Coag (Bld) [Time] 26.5 s Normal 22.3-36.2 [facility] Comment on above: Performed By: #### P TT, PT ####[facility] [id number] [address]Dr. Irma De Paz INSULINon 07-10-2021 Insulin 7.9 uIU/mL Normal 2.6-24.9 [facility] Comment on above: Performed By: #### I NSULIN ####[facility] [id number] [address]Gerpat Trujillo CBC AUTO DIFFon 07-09-2021 BASO # 0.1 103/ul Normal 0.0-0.1 [facility] Comment on above: Performed By: #### C BC #### [facility] [address] [place] [address] Fernanda Cassandra Basophils/100 WBC (Bld) 0.8 % Normal 0.2-2.0 [facility] Comment on above: Performed By: #### C BC #### [facility] [address] [place] [address] Fernanda Cassandra EO # 0.2 103/ul Normal 0.0-0.7 [facility] Comment on above: Performed By: #### C BC #### [facility] [address] [place] [address] Fernanda Cassandra Eosinophils/100 WBC (Bld) 2.0 % Normal 0.9-7.0 [facility] Comment on above: Performed By: #### C BC #### [facility] [address] [place] [address] Fernanda Cassandra Erythrocyte distribution width (RBC) [Ratio] 12.6 % Normal 11.0-15.0 [facility] Comment on above: Performed By: #### C BC #### [facility] [address] [place] [address] Fernanda Cassandra Hematocrit (Bld) [Volume fraction] 44.4 % Normal 42.0-54.0 [facility] Comment on above: Performed By: #### C BC #### [facility] [address] [place] [address] Fernanda Cassandra Hemoglobin (Bld) [Mass/Vol] 15.5 g/dL Normal 14.0-18.0 [facility] Comment on above: Performed By: #### C BC #### [facility] [address] [place] [address] Fernanda Cassandra IG # 0.02 10e3/ul Normal 0.00-0.03 [facility] Comment on above: Performed By: #### C BC #### [facility] [address] [place] [address] Fernanda Cassandra IG % 0.2 % Normal 0.0-0.5 [facility] Comment on above: Performed By: #### C BC #### [facility] [address] [place] [address] Fernanda Cassandra LYMPH # 3.3 103/ul Normal 1.2-3.8 [facility] Comment on above: Performed By: #### C BC #### [facility] [address] [place], [place] [phone] Fernanda Cassandra Lymphocytes/100 WBC (Bld) 32.3 % Normal 20.5-60.0 [facility] Comment on above: Performed By: #### C BC #### [facility] [address] [place], [place] [phone] Fernanda Cassandra MANUAL DIFF REQ NO Normal [facility] Comment on above: Performed By: #### C BC #### [facility] [address] [place], [place] [phone] Fernanda Cassandra MCH (RBC) [Entitic mass] 33.5 pg Normal 25.9-34.0 [facility] Comment on above: Performed By: #### C BC #### [facility] [address] [place], [place] [address] Fernanda Cassandra MCHC (RBC) [Mass/Vol] 34.9 g/dL Normal 29.9-35.2 [facility] Comment on above: Performed By: #### C BC #### [facility] [address] [place], [place] [phone] Fernanda Cassandra MCV (RBC) [Entitic vol] 95.9 fL Critically high 80.0-94.0 [facility] Comment on above: Performed By: #### C BC #### [facility] [address] [place], [place] [address] Fernanda Cassandra MONO # 1.3 103/ul Critically high 0.3-0.8 [facility] Comment on above: Performed By: #### C BC #### [facility] [address] [place], [place] [address] Fernanda Cassandra Monocytes/100 WBC (Bld) 12.8 % Critically high 1.7-12.0 [facility] Comment on above: Performed By: #### C BC #### [facility] [address] [place], [place] [address] Fernanda Cassandra NEUT # 5.3 103/ul Normal 1.4-6.5 [facility] Comment on above: Performed By: #### C BC #### [facility] [address] [phone] Fernanda Trujillo Neutrophils/100 WBC (Bld) 51.9 % Normal 43.0-75.0 [facility] Comment on above: Performed By: #### C BC #### [facility] [address] [place], [place] [address] Fernandapat Trujillo Platelet mean volume (Bld) [Entitic vol] 9.3 fL Critically low 9.5-13.5 [facility] Comment on above: Performed By: #### C BC #### [facility] [address] [phone] Fernanda Cassandra PLT 462 103/ul Critically high 150-450 [facility] Comment on above: Performed By: #### C BC #### [facility] [address] [place] [address] Fernanda Cassandra RBC 4.63 106/ul Critically low 4.70-6.10 [facility] Comment on above: Performed By: #### C BC #### [facility] [address] [place], [place] [address] Fernandapat Delongen WBC 10.3 103/ul Normal 4.0-11.0 [facility] Comment on above: Performed By: #### C BC #### [facility] [address] [place], [place] [address] Fernanda Trujillo FREE THYROXINE INDEX T7on FTI 2.88 Normal [facility] Comment on above: Performed By: #### T 7, TSH, CMP #### [facility] [address] [place], [place] [address] Fernanda Trujillo T3U 36.0 % Normal 23.5-40.5 [facility] Comment on above: Performed By: #### T 7, TSH, CMP #### [facility] [address] [phone] Fernanda Trujillo T4 [Mass/Vol] 8.00 ug/dL Normal 5.53-11.00 [facility] Comment on above: Performed By: #### T 7, TSH, CMP #### [facility] [address] [place], [place] [address] Fernanda Trujillo GLYCOHEMOGLOBIN A1Con 2020 ADA RECOMMENDATION ADA THERAPEUTIC TARGET 6.0 - 7.0 ACTION SUGGESTED > 7.0 Normal [facility] Comment on above: Performed By: #### A 1C ####[facility] [id number] [place], [place] [address]Uudvln Karen Glucose [Mass/Vol] 103 mg/dL Normal [facility] Comment on above: Performed By: #### A 1C ####[facility] [address] [place], [place] [address]Jfkwdh Karen HbA1c (Bld) [Mass fraction] 5.2 % Normal <=6.0 [facility] Comment on above: Performed By: #### A 1C ####[facility] [address] [place], [place] [address]Coebqd Cassandra PROF 14(COMP METB)on 021 Albumin [Mass/Vol] 4.2 g/dL Normal 3.5-5.0 [facility] Comment on above: Performed By: #### T 7, TSH, CMP #### [facility] [address] [phone] Fernanda Cassandra Albumin/Globulin [Mass ratio] 1.2 {ratio} Normal [facility] Comment on above: Performed By: #### T 7, TSH, CMP #### [facility] [address] [phone] Fernanda Cassandra ALP [Catalytic activity/Vol] 95 U/L Normal 38-126 [facility] Comment on above: Performed By: #### T 7, TSH, CMP #### [facility] [address] [phone] Fernanda Cassandra ALT [Catalytic activity/Vol] 26 U/L Normal 21-72 [facility] Comment on above: Performed By: #### T 7, TSH, CMP #### [facility] [address] [phone] Fernanda Cassandra Anion gap [Moles/Vol] 12.2 mmol/L Normal [facility] Comment on above: Performed By: #### T 7, TSH, CMP #### [facility] [address] [address] Fernanda Cassandra AST [Catalytic activity/Vol] 20 U/L Normal 17-59 [facility] Comment on above: Performed By: #### T 7, TSH, CMP #### [facility] [address] [address] Fernanda Cassandra Bilirubin [Mass/Vol] 0.4 mg/dL Normal 0.2-1.3 [facility] Comment on above: Performed By: #### T 7, TSH, CMP #### [facility] [address] [address] Fernanda Cassandra Calcium [Mass/Vol] 9.0 mg/dL Normal 8.4-10.2 [facility] Comment on above: Performed By: #### T 7, TSH, CMP #### [facility] [address] [place] [address] Fernanda Cassandra Chloride [Moles/Vol] 103 mmol/L Normal 98-107 [facility] Comment on above: Performed By: #### T 7, TSH, CMP #### [facility] [address] [place] [address] Fernanda Cassandra CO2 [Moles/Vol] 29.9 mmol/L Normal 22.0-30.0 [facility] Comment on above: Performed By: #### T 7, TSH, CMP #### [facility] [address] [place] [address] Fernanda Cassandra Creatinine [Mass/Vol] 1.10 mg/dL Normal 0.66-1.25 [facility] Comment on above: Performed By: #### T 7, TSH, CMP #### [facility] [address] [phone] Fernanda Cassandra EGFR-AF PORTUGUESE >60 Normal >=60 [facility] Comment on above: Performed By: #### T 7, TSH, CMP #### [facility] [address] [phone] Fernanda Cassandra EGFR-NON AF PORTUGUESE >60 Normal >=60 [facility] Comment on above: Performed By: #### T 7, TSH, CMP #### [facility] [address] [place], [place] [address] Fernanda Cassandra Globulin (S) [Mass/Vol] 3.6 g/dL Normal [facility] Comment on above: Performed By: #### T 7, TSH, CMP #### [facility] [address] [phone] Fernanda Cassandra Glucose [Mass/Vol] 100 mg/dL Normal 74-106 [facility] Comment on above: Performed By: #### T 7, TSH, CMP #### [facility] [address] [place] [address] Fernanda Cassandra Potassium [Moles/Vol] 4.1 mmol/L Normal 3.4-5.0 [facility] Comment on above: Performed By: #### T 7, TSH, CMP #### [facility] [address] [place] [address] Fernanda Cassandra Protein [Mass/Vol] 7.8 g/dL Normal 6.1-8.2 [facility] Comment on above: Performed By: #### T 7, TSH, CMP #### [facility] [address] [place] [address] Fernanda Cassandra Sodium [Moles/Vol] 141 mmol/L Normal 137-145 [facility] Comment on above: Performed By: #### T 7, TSH, CMP #### [facility] [address] [place], [place] [phone] Fernanda Cassandra Urea nitrogen [Mass/Vol] 19.0 mg/dL Normal 9.0-20.0 [facility] Comment on above: Performed By: #### T 7, TSH, CMP #### [facility] [address] [place], [place] [phone] Fernanda Cassandra Urea nitrogen/Creatinine [Mass ratio] 17.3 mg/mg Normal [facility] Comment on above: Performed By: #### T 7, TSH, CMP #### [facility] [address] [place] [address] Fernanda Cassandra TSHon 07-09-2021 TSH 2.813 uIU/mL Normal 0.470-4.680 [facility] Comment on above: Performed By: #### T 7, TSH, CMP #### [facility] [address] [place], [place] [address] Fernanda Trujillo TSH RANGE SEE BELOW Normal [facility] Comment on above: Result Comment: <0.3 4 UIU/ml HYPERTHYROID 0.34-5.60 UIU/ml EUTHYROID >5.60 UIU/ml HYPOTHYROID Performed By: #### T 7, TSH, CMP #### [facility] [address] [place], [place] [address] Fernanda Trujillo Vital Signs Date Time Vital Sign Value Performing Clinician Merly magaña 05-08-2023 12:33-0400 Blood Pressure Location Ayana Lue [facility] 05-08-2023 12:33-0400 Diastolic blood pressure 80 mm[Hg] Ayana Lue [facility] 05-08-2023 12:33-0400 Heart rate 48 /min Ayana Lue [facility] 05-08-2023 12:33-0400 Systolic blood pressure 112 mm[Hg] Ayana Lue [facility] 03-11-2023 10:03-0400 Blood Pressure Location Ayana Lue [facility] 03-11-2023 10:03-0400 Diastolic blood pressure 80 mm[Hg] Ayana Lue [facility] 03-11-2023 10:03-0400 Heart rate 68 /min Ayana Lue [facility] 03-11-2023 10:03-0400 Respiratory rate 16 /min Ayana Lue [facility] 03-11-2023 10:03-0400 Systolic blood pressure 120 mm[Hg] Ayana Burgess [facility] Encounters Encounter Date Encounter Type Care Provider Facility Start: 05-08-2023 End: 05-09-2023 ambulatory Ayana Burgess [facility] Start: 05-08-2023 End: 05-08-2023 Patient encounter procedure Ayana Burgess [facility] Start: 03-11-2023 End: 03-12-2023 ambulatory Ayana RickHoang Galomary [facility] Start: 03-11-2023 End: 03-11-2023 Patient encounter procedure Ayana Burgess [facility] Start: 03-05-2023 ambulatory Ayana Burgess Facility:[facility] [place] Start: 09-04-[address] DAVE WALTON Facility :[facility] Start: 08-23-2021 Encounter for preprocedural laboratory examination DR SHAILESH SHRESTHA [facility] Start: 08-20-2021 End: 08-20-[address] SHAILESH SHRESTHA Facility:[facility] Start: 08-19-2021 Encounter for preprocedural cardiovascular examination DR SHAILESH SHRESTHA [facility] Start: 08-19-2021 End: 08-20-[address] SHAILESH SHRESTHA Facility:[facility] Start: 08-19-2021 End: 08-20-2021 Encounter for preprocedural laboratory examination DR SHAILESH SHRESTHA Facility:[facility] Start: 08-13-2021 End: 08-14-[address] SHAILESH SHRESTHA Facility:[facility] Start: 07-24-2021 End: 07-25-[address] DAVE WALTON Facility:[facility] Start: 07-09-2021 End: 07-10-[address] DAVE WALTON Facility:[facility] Start: 02-18-2013 End: 06-25-2013 Evaluation and management of inpatient KI Marrufo MANA[facility] Procedures Date Procedure Procedure Detail Performing Clinician Start: 05-08-2023 Vasectomy Ayana Lue Knee region structur e (body structure) Ayana Lue Splenectomy Ayana Lue Immunizations Immunization Date Immunization Notes Care Provider Ryan truong 10-01-2022 hepatitis A and hepatitis B vaccine Ayana Lue [facility] 04-30-2022 hepatitis A and hepatitis B vaccine Ayana Lue [facility] 03-26-2022 hepatitis A and hepatitis B vaccine Ayana Lue [facility] 05-17-2021 SARS-CoV-2 (COVID-19 ) mRNA BNT-162b2 vax Ayana Lue [facility] Comment on above: Result Comment: 2022: TPVAL 04-26-2021 SARS-CoV-2 (COVID-19 ) mRNA BNT-162b2 vax Ayana Lue [facility] Comment on above: Result Comment: 2022: TPVAL 02-17-2013 meningococcal ACWY vaccine, unspecified formulation Ayana Lue [facility] 02-17-2013 pneumococcal polysaccharide vaccine, 23 valent Ayana Lue [facility] Payers Date Payer Category Payer Unknown [id number] 1990 Unknown [id number] 2.16.84 [id number] 1989 Unknown [id number] 2.16.84 [id number] 1989 Unknown [id number] 2.16.84 [id number] 1989 Unknown [id number] 2.16.84 [id number] 1989 Unknown [id number] 2.16.84 [id number] 1989 Unknown [id number] 2.16.84 [id number] 1989 Unknown [id number] 2.16.8 [id number] 1989 Unknown [id number] 2.16.8 [id number] 1959 Unknown [id number] Unknown [id number] Social History Date Type Detail Facility Start: 03-11-2023 End: 05-08-2023 Tobacco smoking status Never [facility] Sex Assigned At Male [facility] Functional Status Date Assessment Result Facility 05-08-2023 Functional Status N/A [facility] 03-11-2023 Functional Status N/A [facility] Hospital Discharge instructions 05-08-2023 Note Date & Type Note Facility 05-08-2023 Hospital Discharg e instructions Patient Education 05/08/2023 12:22:25 Vasectomy, Care After Vasectomy, Care After This sheet gives you information about how to care for yourself after your procedure. Your health care provider may also give you more specific instructions. If you have problems or questions, contact your health care provider. What can I expect after the procedure? After the procedure, it is common to have: Mild pain, swelling, or discomfort in your scrotum or redness on your scrotum. Some blood coming from your incisions or puncture sites for 1 or 2 days. Blood in your semen. Follow these instructions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
[2024-01-16 09:55] LABS: Basophils Absolute Auto 0.1 10^3/uL (0.0-0.1); Basophils Percent Auto 1.1 % (0.2-2.0); Eosinophils Absolute Auto 0.5 10^3/uL (0.0-0.7); Hematocrit 43.6 % (42.0-54.0); Hemoglobin 15.1 g/dL (14.0-18.0); Immature Granulocytes Abs Auto 0.01 10^3/uL (0.00-0.03); Immature Granulocytes Pct Auto 0.1 % (0.0-0.5); Lymphocytes Absolute Auto 3.4 10^3/uL (1.2-3.8); Lymphocytes Percent Auto 38.1 % (20.5-60.0); Mean Corpuscular HGB Conc 34.6 g/dL (29.9-35.2); Mean Corpuscular Hemoglobin 32.6 pg (25.9-34.0); Mean Corpuscular Volume 94.2 fL (80.0-94.0); Mean Platelet Volume 9.5 fL (9.5-13.5); Monocytes Percent Auto 11.1 % (1.7-12.0); Neutrophils Percent Auto 44.6 % (43.0-75.0); Platelet Count 497 10^3/uL (150-450); Red Blood Count 4.63 10^6/uL (4.70-6.10); Red Cell Distribution Width 12.2 % (11.0-15.0)
[2024-01-16 10:10] LABS: Estimated Average Glucose 97 mg/dL
[2024-01-16 10:22] LABS: Alanine Aminotransferase 24 U/L (16-63); Albumin Globulin Ratio 1.1; Alkaline Phosphatase 86 U/L (46-116); Anion Gap 7.9; Aspartate Amino Transferase 16 U/L (15-37); BUN Creatinine Ratio 20.8; Carbon Dioxide 32.1 mmol/L (21.0-32.0); Chloride 105 mmol/L (98-107); Chol HDL Ratio 3.3; Cholesterol 199 mg/dL (<=200); Estimated GFR (African America >60 (>=60); Estimated GFR (Non-African Ame >60 (>=60); Free T3 2.75 pg/mL (2.18-3.98); Globulin 3.6 g/dL; Glucose 89 mg/dL (74-106); HDL Cholesterol 61 mg/dL (40-60); Sodium 141 mmol/L (136-145); Thyroid Stimulating Hormone 1.449 uIU/mL (0.358-3.740); Total Protein 7.6 g/dL (6.4-8.2); Triglycerides 90 mg/dL (<=150)
[2024-01-17 12:07] LABS: Insulin 3.9 uIU/mL (2.6-24.9)
== END 2024-01-16 09:12 | disposition home or self-care (01) ==
LOC: LAB 09:12
PROVIDERS: PCP Family Medicine; Visit Provider Family Medicine
DX: Z00.00 Encounter for general adult medical examination without abnormal findings (principal); E78.5 Hyperlipidemia, unspecified; R73.09 Other abnormal glucose
CPT/HCPCS: 36415; 80053; 80061; 83036; 83525; 84436; 84443; 84481; 85025

== ENCOUNTER 2024-04-30 16:10 | Emergency (ER) | payer OTHER, SELFPAY ==
[2024-04-30] VITALS (14 sets, daily range): BP systolic 100–137; BP diastolic 52–84; PULSE 53–83; TEMP 36.6–36.9; O2SAT 96–100; BMI 23.7
--- OUTSIDE RECORDS SUMMARY | 2024-04-30 16:15 | XMS_ITS | CCD ---
Author Organization [facility] Care Team Providers Care Product Development Technician Name Role Phone KI SCHWARTZ Unavailable Unavailable [...] Unavailable TIMMIS, DR CASH Attending Unavailable LUCIAJIHAN Consulting Unavailable Dave Walton Primary Care Physician [phone] Ayana Burgess Attending Unavailable Ayana Burgess Attending Unavailable Allergies Allergy Classification Reported Allergen(s) Allergy Type Date of Onset Reaction(s) Facility (1 source) clindamycin Drug Allergy [facility] Repository (1 source) No Known Drug Allergies Drug allergy (disorder) [facility] Repository (1 source) No Known Food Allergies; Translations: [No Known Food Allergies] Food allergy (disorder) [facility] Repository (1 source) No Known Medication Allergies; Translations: [No Known Medication Allergies] Propensity to adverse reactions (disorder) [facility] Repository Medications Current Medications Medication Drug Class(es) [...] pain, # 4 tab(s), Refills(s) 0, Pharmacy: [facility]/pharmacy #[id number], 178, cm, 03/11/23 10:06:00 [...] 07-15-2021 Episodic Other aftercare (1 source) Other terminologist (current) drug therapy; Translations: [OTH INTERMEDIATE CURRENT DRUG THERAPY] Onset: 08-26-2021 Episodic Other lower respiratory disease (4 sources) Snoring; Translations: [SNORING] Onset: 07-09-2021 Episodic Other upper respiratory disease (5 sources) Deviated nasal septum; Translations: [DEVIATED NASAL SEPTUM] Onset: 08-19-2021 Episodic Other upper respiratory disease (1 source) Hypertrophy of nasal turbinates; Translations: [HYPERTROPHY OF NASAL TURBINATES] Onset: 08-26-2021 Episodic Results Test Name Value Interpretation Reference Range Facility Consent for Procedure/[facility] 05-11-2023 Consent for Procedure/Surgery [id number] .[id number]:127 Normal [facility] Ambulatory Visit Summaryon 0 05-08-2023 Ambulatory Visit Summary JORGE JORGENSEN :1990 Visit Date:05/08/2023 Ambulatory Visit Instructions Your [...] these instructions at home: Medicines ? Take kcpv-obc-iyhlbyd and prescription medicines only as told by [...] You will (more content not included)... Normal [facility] Patient Educationon 06-23-20 23 Patient Education Urology Vasectomy, Care After This [...] these instructions at home: Medicines ? Take ulec-akz-ibfqchz and prescription medicines only as told by [...] provider. Document Revised: 03/21/2021 Document Reviewed: 03/21/2021 [employer] Patient Education ? 2022 [employer] [facility] Urology Office/Clinic Noteon 05-08-2023 Urology Office/Clinic Note [...] the patient. 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 [...] get the r (more content not included)... [facility] Comment on above: Result Comment: Elec tronically Signed By: Aditya TOLEDO, Ayana Meraz\.br\Date and Time Signed: 05/08/23 13:14 EDT\.br\Electronically Co-Signed By: Ciarra Smart\.br\Date and Time Co-Signed: 05/08/23 13:11 EDT Physician Referralon 023 Physician Referral [id number]. 00CD:127 [facility] Physician Referral [id number] .[id number]:127 [facility] Screenson 03-12-2023 Screens [id number]. 00CD:127 [facility] Patient Educationon 03-11-20 Patient Education Urology Vasectomy, [...] these instructions at home: Medicines ? Take tpjf-mgy-sjlmduf and prescription medicines only as told by [...] provider. Document Revised: 03/21/2021 Document Reviewed: 03/21/2021 [employer] Patient Education ? 2022 [employer] Normal [facility] Covid-19 PCR (CVDTBH)on SARS-CoV-2 (COVID-19) RNA SRAVANI+probe Ql (Unsp spec) Not detected Normal NOT DETECTED [facility] Comment on above: Result Comment: This test is not yet approved or cleared by the [place] FDA. When there are no FDA-approved or cleared tests available, and other criteria are met, FDA can make tests available under an emergency access mechanism called an Emergency Use Authorization (EUA). The EUA for this test is supported by the Service Trainer of Health and Human Service's (HHS's) declaration [...] SARS-CoV-2. Performed By: #### C VDTBH #### [facility] [address] [place] [address] Dr. Irma De Paz BNPon 08-13-2021 Natriuretic peptide B (Bld) [Mass/Vol] 77.0 pg/mL Normal <=450.0 [facility] Comment on above: Performed By: #### B ROUTE DRIVER SALESPERSON, CMP #### [facility] [address] [place] [address] Dr. Irma De Paz CBC AUTO DIFFon 08-13-2021 BASO # 0.1 103/ul Normal 0.0-0.1 [facility] Comment on above: Performed By: #### C BC #### [facility] [address] [place] [address] Dr. Irma De Paz Basophils/100 WBC (Bld) 1.2 % Normal 0.2-2.0 [facility] Comment on above: Performed By: #### C BC #### [facility] [address] [place] [address] Dr. Irma De Paz EO # 0.3 103/ul Normal 0.0-0.7 [facility] Comment on above: Performed By: #### C BC #### [facility] [address] [place] [address] Dr. Irma De Paz Eosinophils/100 WBC (Bld) 3.1 % Normal 0.9-7.0 [facility] Comment on above: Performed By: #### C BC #### [facility] [address] [place] [address] Dr. Irma De Paz Erythrocyte distribution width (RBC) [Ratio] 12.3 % Normal 11.0-15.0 [facility] Comment on above: Performed By: #### C BC #### [facility] [address] [place] [address] Dr. Irma De Paz Hematocrit (Bld) [Volume fraction] 41.3 % Critically low 42.0-54.0 [facility] Comment on above: Performed By: #### C BC #### [facility] [address] [place] [address] Dr. Irma De Paz Hemoglobin (Bld) [Mass/Vol] 14.5 g/dL Normal 14.0-18.0 [facility] Comment on above: Performed By: #### C BC #### [facility] [address] [place] [address] Dr. Irma De Paz IG # 0.02 10e3/ul Normal 0.00-0.03 [facility] Comment on above: Performed By: #### C BC #### [facility] [address] [place] [address] Dr. Irma De Paz IG % 0.2 % Normal 0.0-0.5 [facility] Comment on above: Performed By: #### C BC #### [facility] [address] [place] [address] Dr. Irma De Paz LYMPH # 3.6 103/ul Normal 1.2-3.8 [facility] Comment on above: Performed By: #### C BC #### [facility] [address] [place] [address] Dr. Irma De Paz Lymphocytes/100 WBC (Bld) 36.3 % Normal 20.5-60.0 [facility] Comment on above: Performed By: #### C BC #### [facility] [address] [place] [address] Dr. Irma De Paz MANUAL DIFF REQ NO Normal [facility] Comment on above: Performed By: #### C BC #### [facility] [address] [place] [address] Dr. Irma De Paz MCH (RBC) [Entitic mass] 32.9 pg Normal 25.9-34.0 [facility] Comment on above: Performed By: #### C BC #### [facility] [address] [place] [address] Dr. Irma De Paz MCHC (RBC) [Mass/Vol] 35.1 g/dL Normal 29.9-35.2 [facility] Comment on above: Performed By: #### C BC #### [facility] [address] [place] [address] Dr. Irma De Paz MCV (RBC) [Entitic vol] 93.7 fL Normal 80.0-94.0 [facility] Comment on above: Performed By: #### C BC #### [facility] [address] [place] [address] Dr. Irma De Paz MONO # 1.1 103/ul Critically high 0.3-0.8 [facility] Comment on above: Performed By: #### C BC #### [facility] [address] [place] [address] Dr. Irma De Paz Monocytes/100 WBC (Bld) 11.4 % Normal 1.7-12.0 [facility] Comment on above: Performed By: #### C BC #### [facility] [address] [place] [address] Dr. Irma De Paz NEUT # 4.8 103/ul Normal 1.4-6.5 [facility] Comment on above: Performed By: #### C BC #### [facility] [address] [place] [address] Dr. Irma De Paz Neutrophils/100 WBC (Bld) 47.8 % Normal 43.0-75.0 [facility] Comment on above: Performed By: #### C BC #### [facility] [address] [place] [address] Dr. Irma De Paz Platelet mean volume (Bld) [Entitic vol] 9.2 fL Critically low 9.5-13.5 [facility] Comment on above: Performed By: #### C BC #### [facility] [address] [place] [address] Dr. Irma De Paz PLT 410 103/ul Normal 150-450 [facility] Comment on above: Performed By: #### C BC #### [facility] [address] [place] [address] Dr. Irma De Paz RBC 4.41 106/ul Critically low 4.70-6.10 [facility] Comment on above: Performed By: #### C BC #### [facility] [address] [place] [address] Dr. Irma De Paz WBC 10.0 103/ul Normal 4.0-11.0 [facility] Comment on above: Performed By: #### C BC #### [facility] [address] [address] [address] Irma De Paz D-DIMERon 08-13-2021 D-DIMER 2.56 mg/L FEU Critically high 0.19-0.50 [facility] Comment on above: Performed By: #### D DIM ####[facility] [address] [id number]. Irma De Paz D-DIMER COMMENTS SEE BELOW Normal [facility] Comment on above: Result Comment: Incr eases [...] generalized hospitalization. Performed By: #### D DIM ####[facility] [address] [id number]. Irma De Paz PROF 14(COMP METB)on 021 Albumin [Mass/Vol] 4.1 g/dL Normal 3.5-5.0 [facility] Comment on above: Performed By: #### B ROUTE DRIVER SALESPERSON, CMP #### [facility] [address] [address] [address] Irma De Paz Albumin/Globulin [Mass ratio] 1.2 {ratio} Normal [facility] Comment on above: Performed By: #### B ROUTE DRIVER SALESPERSON, CMP #### [facility] [address] [address] [address] Irma De Paz ALP [Catalytic activity/Vol] 95 U/L Normal 38-126 [facility] Comment on above: Performed By: #### B ROUTE DRIVER SALESPERSON, CMP #### [facility] [address] [address] [address] Irma De Paz ALT [Catalytic activity/Vol] 21 U/L Normal 21-72 [facility] Comment on above: Performed By: #### B ROUTE DRIVER SALESPERSON, CMP #### [facility] [address] [address] [address] Irma De Paz Anion gap [Moles/Vol] 9.0 mmol/L Normal [facility] Comment on above: Performed By: #### B ROUTE DRIVER SALESPERSON, CMP #### [facility] [address] [address] [address] Irma De Paz AST [Catalytic activity/Vol] 19 U/L Normal 17-59 [facility] Comment on above: Performed By: #### B ROUTE DRIVER SALESPERSON, CMP #### [facility] [address] [address] [address] Irma De Paz Bilirubin [Mass/Vol] 0.6 mg/dL Normal 0.2-1.3 [facility] Comment on above: Performed By: #### B ROUTE DRIVER SALESPERSON, CMP #### [facility] [address] [address] [address] Irma De Paz Calcium [Mass/Vol] 9.2 mg/dL Normal 8.4-10.2 [facility] Comment on above: Performed By: #### B ROUTE DRIVER SALESPERSON, CMP #### [facility] [address] [address] [address] Irma De Paz Chloride [Moles/Vol] 106 mmol/L Normal 98-107 [facility] Comment on above: Performed By: #### B ROUTE DRIVER SALESPERSON, CMP #### [facility] [address] [address] [address] Irma De Paz CO2 [Moles/Vol] 27.8 mmol/L Normal 22.0-30.0 [facility] Comment on above: Performed By: #### B ROUTE DRIVER SALESPERSON, CMP #### [facility] [address] [address] [address] Irma De Paz Creatinine [Mass/Vol] 0.88 mg/dL Normal 0.66-1.25 [facility] Comment on above: Performed By: #### B ROUTE DRIVER SALESPERSON, CMP #### [facility] [address] [address] [address] Irma De Paz EGFR-AF ZAMBIAN >60 Normal >=60 [facility] Comment on above: Performed By: #### B ROUTE DRIVER SALESPERSON, CMP #### [facility] [address] [address] [address] Irma De Paz EGFR-NON AF ZAMBIAN >60 Normal >=60 [facility] Comment on above: Performed By: #### B ROUTE DRIVER SALESPERSON, CMP #### [facility] [address] [address] [address] Irma De Paz Globulin (S) [Mass/Vol] 3.3 g/dL Normal [facility] Comment on above: Performed By: #### B ROUTE DRIVER SALESPERSON, CMP #### [facility] [address] [address] [address] Irma De Paz Glucose [Mass/Vol] 92 mg/dL Normal 74-106 [facility] Comment on above: Performed By: #### B ROUTE DRIVER SALESPERSON, CMP #### [facility] [address] [place] [address] Dr. Irma De Paz Potassium [Moles/Vol] 3.8 mmol/L Normal 3.4-5.0 [facility] Comment on above: Performed By: #### B ROUTE DRIVER SALESPERSON, CMP #### [facility] [address] [place] [address] Dr. Irma De Paz Protein [Mass/Vol] 7.4 g/dL Normal 6.1-8.2 [facility] Comment on above: Performed By: #### B ROUTE DRIVER SALESPERSON, CMP #### [facility] [address] [place] [address] Dr. Irma De Paz Sodium [Moles/Vol] 139 mmol/L Normal 137-145 [facility] Comment on above: Performed By: #### B ROUTE DRIVER SALESPERSON, CMP #### [facility] [address] [place] [address] Dr. Irma De Paz Urea nitrogen [Mass/Vol] 15.0 mg/dL Normal 9.0-20.0 [facility] Comment on above: Performed By: #### B ROUTE DRIVER SALESPERSON, CMP #### [facility] [address] [place] [address] Dr. Irma De Paz Urea nitrogen/Creatinine [Mass ratio] 17.0 mg/mg Normal [facility] Comment on above: Performed By: #### B ROUTE DRIVER SALESPERSON, CMP #### [facility] [address] [address] [address] Irma De Paz PROTIMEon 08-13-2021 INR Coag (PPP) [Relative time] 0.99 {INR} Normal [facility] Comment on above: Performed By: #### P TT, PT #### [facility] [address] [address] [address] Irma De Paz INR GUIDELINES SEE BELOW Normal [facility] Comment on above: Result Comment: BRI RED INR: 2.0 - 3.0 CONDITIONS NOT LISTED BELOW 2.5 - 3.5 FOR PROSTHETIC HEART VALVE REPLACEMENT 2.5 - 3.5 RECURRENT THROMBOSIS Performed By: #### P TT, PT #### [facility] [address] [place] [address] Dr. Irma De Paz PT Coag (PPP) [Time] 10.7 s Normal 9.0-11.6 [facility] Comment on above: Performed By: #### P TT, PT #### [facility] [address] [place] [address] Dr. Irma De Paz PTTon 08-13-2021 aPTT Coag (Bld) [Time] 26.5 s Normal 22.3-36.2 [facility] Comment on above: Performed By: #### P TT, PT ####[facility] [address] [address]Dr. Irma De Paz INSULINon 07-10-2021 Insulin 7.9 uIU/mL Normal 2.6-24.9 [facility] Comment on above: Performed By: #### I NSULIN ####[facility] [address] [address]Gerken Cassandra CBC AUTO DIFFon 07-09-2021 BASO # 0.1 103/ul Normal 0.0-0.1 [facility] Comment on above: Performed By: #### C BC #### [facility] [address] [place] [address] Fernanda Cassandra Basophils/100 WBC (Bld) 0.8 % Normal 0.2-2.0 [facility] Comment on above: Performed By: #### C BC #### [facility] [address] [place], [place] [id number] Fernanda Cassandra EO # 0.2 103/ul Normal 0.0-0.7 [facility] Comment on above: Performed By: #### C BC #### [facility] [address] [place], [place] [id number] Fernanda Cassandra Eosinophils/100 WBC (Bld) 2.0 % Normal 0.9-7.0 [facility] Comment on above: Performed By: #### C BC #### [facility] [address] [place] [address] Fernanda Cassandra Erythrocyte distribution width (RBC) [Ratio] 12.6 % Normal 11.0-15.0 [facility] Comment on above: Performed By: #### C BC #### [facility] [address] [place] [address] Fernanda Cassandra Hematocrit (Bld) [Volume fraction] 44.4 % Normal 42.0-54.0 [facility] Comment on above: Performed By: #### C BC #### [facility] [address] [place], [place] [id number] Fernanda Cassandra Hemoglobin (Bld) [Mass/Vol] 15.5 g/dL Normal 14.0-18.0 [facility] Comment on above: Performed By: #### C BC #### [facility] [address] [place] [address] Fernanda Cassandra IG # 0.02 10e3/ul Normal 0.00-0.03 [facility] Comment on above: Performed By: #### C BC #### [facility] [address] [place] [address] Fernanda Cassandra IG % 0.2 % Normal 0.0-0.5 [facility] Comment on above: Performed By: #### C BC #### [facility] [address] [place], [place] [id number] Fernanda Cassandra LYMPH # 3.3 103/ul Normal 1.2-3.8 [facility] Comment on above: Performed By: #### C BC #### [facility] [address] [id number] Fernanda Cassandra Lymphocytes/100 WBC (Bld) 32.3 % Normal 20.5-60.0 [facility] Comment on above: Performed By: #### C BC #### [facility] [address] [place], [place] [id number] Fernanda Cassandra MANUAL DIFF REQ NO Normal [facility] Comment on above: Performed By: #### C BC #### [facility] [address] [place], [place] [id number] Fernanda Cassandra MCH (RBC) [Entitic mass] 33.5 pg Normal 25.9-34.0 [facility] Comment on above: Performed By: #### C BC #### [facility] [address] [place] [address] Fernandapat Delongen MCHC (RBC) [Mass/Vol] 34.9 g/dL Normal 29.9-35.2 [facility] Comment on above: Performed By: #### C BC #### [facility] [address] [place], [place] [id number] Fernanda Cassandra MCV (RBC) [Entitic vol] 95.9 fL Critically high 80.0-94.0 [facility] Comment on above: Performed By: #### C BC #### [facility] [address] [place] [address] Fernanda Cassandra MONO # 1.3 103/ul Critically high 0.3-0.8 [facility] Comment on above: Performed By: #### C BC #### [facility] [address] [place], [place] [address] Fernanda Cassandra Monocytes/100 WBC (Bld) 12.8 % Critically high 1.7-12.0 [facility] Comment on above: Performed By: #### C BC #### [facility] [address] [place], [place] [address] Fernanda Cassandra NEUT # 5.3 103/ul Normal 1.4-6.5 [facility] Comment on above: Performed By: #### C BC #### [facility] [address] [place] [address] Fernanda Trujillo Neutrophils/100 WBC (Bld) 51.9 % Normal 43.0-75.0 [facility] Comment on above: Performed By: #### C BC #### [facility] [address] [place], [place] [id number] Fernanda Trujillo Platelet mean volume (Bld) [Entitic vol] 9.3 fL Critically low 9.5-13.5 [facility] Comment on above: Performed By: #### C BC #### [facility] [address] [place], [place] [address] Fernanda Trujillo PLT 462 103/ul Critically high 150-450 [facility] Comment on above: Performed By: #### C BC #### [facility] [address] [place] [address] Fernanda Trujillo RBC 4.63 106/ul Critically low 4.70-6.10 [facility] Comment on above: Performed By: #### C BC #### [facility] [address] [place] [address] Fernanda Trujillo WBC 10.3 103/ul Normal 4.0-11.0 [facility] Comment on above: Performed By: #### C BC #### [facility] [address] [place], [place] [address] Fernanda Trujillo FREE THYROXINE INDEX T7on FTI 2.88 Normal [facility] Comment on above: Performed By: #### T 7, TSH, CMP #### [facility] [address] [place], [place] [address] Fernanda Trujillo T3U 36.0 % Normal 23.5-40.5 [facility] Comment on above: Performed By: #### T 7, TSH, CMP #### [facility] [address] [place], [place] [address] Fernanda Trujillo T4 [Mass/Vol] 8.00 ug/dL Normal 5.53-11.00 [facility] Comment on above: Performed By: #### T 7, TSH, CMP #### [facility] [address] [place], [place] [id number] Fernanda Trujillo GLYCOHEMOGLOBIN A1Con 2020 ADA RECOMMENDATION ADA THERAPEUTIC TARGET 6.0 - 7.0 ACTION SUGGESTED > 7.0 Normal [facility] Comment on above: Performed By: #### A 1C ####[facility] [address] [place], [place] [address]ZmwygzFernanda Trujillo Glucose [Mass/Vol] 103 mg/dL Normal [facility] Comment on above: Performed By: #### A 1C ####[facility] [address] [place], [place] [address]DiojyfFernanda Trujillo HbA1c (Bld) [Mass fraction] 5.2 % Normal <=6.0 [facility] Comment on above: Performed By: #### A 1C ####[facility] [address] [id number] Cassandra PROF 14(COMP METB)on 021 Albumin [Mass/Vol] 4.2 g/dL Normal 3.5-5.0 [facility] Comment on above: Performed By: #### T 7, TSH, CMP #### [facility] [address] [address] Fernanda Trujillo Albumin/Globulin [Mass ratio] 1.2 {ratio} Normal [facility] Comment on above: Performed By: #### T 7, TSH, CMP #### [facility] [address] [address] Fernanda Cassandra ALP [Catalytic activity/Vol] 95 U/L Normal 38-126 [facility] Comment on above: Performed By: #### T 7, TSH, CMP #### [facility] [address] [address] Fernanda Trujillo ALT [Catalytic activity/Vol] 26 U/L Normal 21-72 [facility] Comment on above: Performed By: #### T 7, TSH, CMP #### [facility] [address] [address] Fernanda Cassandra Anion gap [Moles/Vol] 12.2 mmol/L Normal [facility] Comment on above: Performed By: #### T 7, TSH, CMP #### [facility] [address] [address] Fernanda Cassandra AST [Catalytic activity/Vol] 20 U/L Normal 17-59 [facility] [facility] Comment on above: Performed By: #### T 7, TSH, CMP #### [facility] [address] [place] [address] Fernanda Cassandra Bilirubin [Mass/Vol] 0.4 mg/dL Normal 0.2-1.3 [facility] Comment on above: Performed By: #### T 7, TSH, CMP #### [facility] [address] [place] [address] Fernanda Cassandra Calcium [Mass/Vol] 9.0 mg/dL Normal 8.4-10.2 [facility] Comment on above: Performed By: #### T 7, TSH, CMP #### [facility] [address] [place] [address] Fernanda Cassandra Chloride [Moles/Vol] 103 mmol/L Normal 98-107 [facility] Comment on above: Performed By: #### T 7, TSH, CMP #### [facility] [address] [place] [address] Fernanda Cassandra CO2 [Moles/Vol] 29.9 mmol/L Normal 22.0-30.0 The [facility] Comment on above: Performed By: #### T 7, TSH, CMP #### [facility] [address] [place] [address] Fernanda Cassandra Creatinine [Mass/Vol] 1.10 mg/dL Normal 0.66-1.25 [facility] Comment on above: Performed By: #### T 7, TSH, CMP #### [facility] [address] [place] [address] Fernanda Cassandra EGFR-AF ZAMBIAN >60 Normal >=60 The [facility] Comment on above: Performed By: #### T 7, TSH, CMP #### [facility] [address] [place] [address] Fernanda Cassandra EGFR-NON AF ZAMBIAN >60 Normal >=60 [facility] Comment on above: Performed By: #### T 7, TSH, CMP #### [facility] [address] [address] Fernanda Cassandra Globulin (S) [Mass/Vol] 3.6 g/dL Normal [facility] Comment on above: Performed By: #### T 7, TSH, CMP #### [facility] [address] [place] [address] Fernanda Cassandra Glucose [Mass/Vol] 100 mg/dL Normal 74-106 [facility] Comment on above: Performed By: #### T 7, TSH, CMP #### [facility] [address] [place] [address] Fernanda Cassandra Potassium [Moles/Vol] 4.1 mmol/L Normal 3.4-5.0 [facility] Comment on above: Performed By: #### T 7, TSH, CMP #### [facility] [address] [place] [address] Fernanda Cassandra Protein [Mass/Vol] 7.8 g/dL Normal 6.1-8.2 [facility] Comment on above: Performed By: #### T 7, TSH, CMP #### [facility] [address] [place] [address] Fernanda Cassandra Sodium [Moles/Vol] 141 mmol/L Normal 137-145 [facility] Comment on above: Performed By: #### T 7, TSH, CMP #### [facility] [address] [place] [address] Fernanda Cassandra Urea nitrogen [Mass/Vol] 19.0 mg/dL Normal 9.0-20.0 [facility] Comment on above: Performed By: #### T 7, TSH, CMP #### [facility] [address] [place] [address] Fernanda Cassandra Urea nitrogen/Creatinine [Mass ratio] 17.3 mg/mg Normal [facility] Comment on above: Performed By: #### T 7, TSH, CMP #### [facility] [address] [place] [address] Fernanda Cassandra TSHon 07-09-2021 TSH 2.813 uIU/mL Normal 0.470-4.680 The [facility] Comment on above: Performed By: #### T 7, TSH, CMP #### [facility] [address], [place] [address] Fernandapat Trujillo TSH RANGE SEE BELOW Normal [facility] Comment on above: Result Comment: <0.3 4 UIU/ml HYPERTHYROID 0.34-5.60 UIU/ml EUTHYROID >5.60 UIU/ml HYPOTHYROID Performed By: #### T 7, TSH, CMP #### [facility] [address], [place] [address] Fernanda Trujillo Vital Signs Date Time Vital Sign Value Performing Clinician Merly magaña 05-08-2023 12:33-0400 Blood Pressure Location Ayana Lue [facility] 05-08-2023 12:33-0400 Diastolic blood pressure 80 mm[Hg] Ayana Lue [facility] 05-08-2023 12:33-0400 Heart rate 48 /min Ayana Lue [facility] 05-08-2023 12:33-0400 Systolic blood pressure 112 mm[Hg] Ayana Lue [facility] 03-11-2023 10:03-0400 Blood Pressure Location Aayna Lue [facility] 03-11-2023 10:03-0400 Diastolic blood pressure 80 mm[Hg] Ayana Lue [facility] 03-11-2023 10:03-0400 Heart rate 68 /min Ayana Lue [facility] 03-11-2023 10:03-0400 Respiratory rate 16 /min Ayana Lue [facility] 03-11-2023 10:030400 Systolic blood pressure 120 mm[Hg] Ayana Burgess [facility] Encounters Encounter Date Encounter Type Care Provider Facility Start: 05-08-2023 End: 05-09-2023 ambulatory Ayana Burgess Facility:[facility] Start: 05-08-2023 End: 05-08-2023 Patient encounter procedure Ayana Burgess [facility] Start: 03-11-2023 End: 03-12-2023 ambulatory Ayana CabreraHoang Galomary Facility:[facility] Start: 03-11-2023 End: 03-11-2023 Patient encounter procedure Ayana Burgess [facility] Start: 03-05-2023 ambulatory Ayana Burgess Facility:E [facility] Start: 09-04-[address] DAVE WALTON Facility :[facility] Start: 08-23-2021 Encounter for preprocedural laboratory examination DR SHAILESH SHRESTHA [facility] Start: 08-20-2021 End: 08-20-[address] SHAILESH SHRESTHA Facility:[facility] Start: 08-19-2021 Encounter for preprocedural cardiovascular examination DR SHAILESH SHRESTHA [facility] Start: 08-19-2021 End: 08-20-[address] SHAILESH SHRESTHA Facility:[facility] Start: 08-19-2021 End: 08-20-2021 Encounter for preprocedural laboratory examination DR SHAILESH SHRESTHA Facility:[facility] Start: 08-13-2021 End: 08-14-[address] SHAILESH SHRESTHA Facility:[facility] Start: 07-24-2021 End: 07-25-[address] DAVE WALTON Facility:[facility] Start: 07-09-2021 End: 07-10-[address] DAVE WALTON Facility:[facility] Start: 02-18-2013 End: 06-25-2013 Evaluation and management of inpatient KI SCHWARTZ [facility] Procedures Date Procedure Procedure Detail Performing Clinician Start: 05-08-2023 Vasectomy Ayana Lue Knee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
--- NOTE | 2024-04-30 16:25 | ECG_ITS ---
The [facility] Test Date: 2024-04-30 Pat Name: JORGE JORGENSEN Department: Room: - Gender: Male [employer]: : 1990 Requested By: DAVE ARCHER Order Number: [id number] Reading MD: CHRISTOFER GARCIA Measurements Intervals [place] Rate: 58 P: 63 RI: 162 QRS: 77 QRSD: 112 T: 48 QT: 418 QTc: 414 Interpretive Statements 1100 Sinus rhythm 1108 Marked sinus arrhythmia 2320 Nonspecific intraventricular conduction delay 9130 borderline ECG Compared to ECG 08/13/2021 15:25:10 Intraventricular conduction delay now present Sinus bradycardia no longer present Electronically Signed On 05-01-2024 7:32:56 EDT by CHRISTOFER GARCIA
--- NOTE | 2024-04-30 16:25 | CT_ITS ---
The [address] [address] Patient Name: JORGE JORGENSEN MRN: [id number] date: 1990 Sex: M Assigned Patient Location: ER Current Patient Location: Accession/Order Number: [id number] Exam Date: 04/30/2024 17:00 Report Date: 04/30/2024 18:26 At the request of: DONY JO Procedure: CT angio chest EXAM: CT angio chest HISTORY: Dissection rule out COMPARISON: None. TECHNIQUE: CT chest with intravenous contrast was performed with timing for the evaluation for pulmonary arteries. Multiplanar reformats were performed. MIP (maximum intensity projection) images or 3D post processing was performed. Dose reduction techniques were achieved by using automated exposure control and/or adjustment of mA and/or kV according to patient size and/or use of iterative reconstruction technique. FINDINGS: Lungs: No consolidation, pneumothorax, or effusion. Airways: Normal. Mediastinum: No adenopathy. Aorta: No aneurysm. Cardiac: Normal size. No pericardial effusion. Pulmonary vasculature: Diagnostic opacification of pulmonary arteries without evidence of pulmonary embolus. Normal morphology. Bones: No acute bony abnormality. Axilla: No adenopathy. Thyroid gland: No abnormality demonstrated on provided imaging. Soft tissues: Unremarkable. Upper abdomen: Circumferential wall thickening of the distal esophagus, likely representing esophagitis. Correlation with GI endoscopy is recommended. Additional findings: None. CT/CT angio chest IMPRESSION:No evidence of aortic dissection, pulmonary embolus or acute intrathoracic abnormality. Circumferential wall thickening of the distal esophagus, likely representing esophagitis. Correlation with GI endoscopy is recommended. Electronically authenticated by: MEDINA ZIEGLER Date: 04/30/2024 18:26
[2024-04-30] MEDS: FAMOTIDINE/PF 20 MG/2 ML VIAL IV (16:40)
[2024-04-30] MEDS: ONDANSETRON PF 4 MG/2 ML VIAL IV (16:40)
[2024-04-30] MEDS: MORPHINE SULFATE 4 MG/ML VIAL IV (16:40)
--- NOTE | 2024-04-30 17:00 | ED_ITS ---
HPI - Chest Pain General Chief Complaint: Chest Pain Stated Complaint: CHEST PAIN Time Seen by Provider: 04/30/24 16:13 Source: patient Mode of arrival: walk-in Limitations: no limitations History of Present Illness HPI narrative: 33-year-old male to the emergency department chief complaint of chest pain. Symptoms began suddenly approximately an hour prior to arrival. It is a sharp 10 out of 10 tearing pain located in his chest. He has never had pain like this before. There is no abdominal pain, nausea, vomiting. There is no shortness of breath. He is otherwise at his baseline health. No history of heart problems. Related Data Home Medications ?Medication ?Instructions ?Recorded ?Confirmed sertraline 100 mg tablet 100 mg PO DAILY 11/10/23 04/30/24 Allergies Allergy/AdvReac Type Severity Reaction Status Date / Time No Known Drug Allergies Allergy Verified 04/30/24 16:14 Review of Systems ROS Status of ROS 10 or more systems reviewed and unremark able except as noted in history and below [facility] Social History Smoking status: Heavy tobacco smoker Exam Narrative Exam Narrative: VITALS: I have reviewed the triage vital signs. GENERAL: Comfortable adult male holding chest NEURO: Alert and oriented. Moves all extremities. Face is symmetric and expressive. EYES: PERRL. No scleral icterus or conjunctival injection. No discharge. HENT: Normocephalic, atraumatic. Hearing is grossly intact. Nares grossly patent and without discharge. Mucous membranes moist. NECK: No JVD. Patient moves neck without restriction. CARDIO: Rhythm regular. Normal rate. No murmur, rub, or gallop. Pulses equal bilaterally in the upper and lower extremity. No lower extremity edema. PULM: Lungs clear to auscultation in all todd. No wheezes, rales, or rhonchi. No conversational dyspnea. No splinting, stridor, or accessory muscle use. GI/: Abdomen is soft and non-tender. Normoactive bowel sounds. EXTREMITIES: Symmetric muscle bulk. No joint swelling. No clubbing, cyanosis, or deformity. SKIN: Warm and dry. Normal turgor. No rash or lesions appreciated. PSYCH: Anxious Constitutional Vital Signs, click to edit/add: Last Vital Signs Temp 97.8 F 04/30/24 16:14 Pulse 83 04/30/24 17:50 Resp 16 04/30/24 17:50 BP 112/70 04/30/24 17:30 Pulse Ox 97 04/30/24 17:50 O2 Del Method Room Air 04/30/24 16:14 Course Vital Signs Vital signs: Vital Signs Temperature 97.8 F 04/30/24 16:14 Pulse Rate 54 L 04/30/24 16:14 Respiratory Rate 25 H 04/30/24 16:14 Blood Pressure 137/79 04/30/24 16:14 Pulse Oximetry 99 04/30/24 16:14 Oxygen Delivery Method Room Air 04/30/24 16:14 Temperature 97.8 F 04/30/24 16:14 Pulse Rate 83 04/30/24 17:50 Respiratory Rate 16 04/30/24 17:50 Blood Pressure 112/70 04/30/24 17:30 Pulse Oximetry 97 04/30/24 17:50 Oxygen Delivery Method Room Air 04/30/24 16:14 MDM - Chest Pain MDM Narrative Medical decision making narrative: 33-year-old male to the emergency department with chief complaint of chest pain. Vital stable, the patient is afebrile. Patient describing quite severe pain describing it as tearing. Will proceed with CT angiogram of chest to rule out dissection. Cardiac workup otherwise initiated. Pain medications are ordered. Patient agrees with this plan. CBC and chemistry without acute findings. Troponin negative. CTA of the chest without acute findings. Care was signed out to Dr. Reyna with results of delta troponin and disposition pending. Medical Records Data Attestation: I reviewed the patient's medical records. Lab Data Attestation: I reviewed the patient's lab results. Labs: Lab Results 04/30/24 Range/Units 16:30 WBC 10.2 (4.0-11.0) 10^3/uL RBC 4.67 L (4.70-6.10) 10^6/uL Hgb 15.5 (14.0-18.0) g/dL Hct 43.7 (42.0-54.0) % MCV 93.6 (80.0-94.0) fL MCH 33.2 (25.9-34.0) pg MCHC 35.5 H (29.9-35.2) g/dL RDW 11.9 (11.0-15.0) % Plt Count 519 H (150-450) 10^3/uL MPV 9.4 L (9.5-13.5) fL Neut % (Auto) 42.7 L (43.0-75.0) % Lymph % (Auto) 35.4 (20.5-60.0) % [place] % (Auto) 13.4 H (1.7-12.0) % Eos % (Auto) 7.3 H (0.9-7.0) % Baso % (Auto) 1.1 (0.2-2.0) % Neut # (Auto) 4.4 (1.4-6.5) 10^3/uL Lymph # (Auto) 3.6 (1.2-3.8) 10^3/uL [place] # (Auto) 1.4 H (0.3-0.8) 10^3/uL Eos # (Auto) 0.7 (0.0-0.7) 10^3/uL Baso # (Auto) 0.1 (0.0-0.1) 10^3/uL Abs Immat Gran (auto) 0.01 (0.00-0.03) 10^3/uL Imm/Tot Granulo (auto) 0.1 (0.0-0.5) % PT 10.6 (9.0-11.6) sec INR 1.00 APTT 28.4 (22.3-36.2) sec Sodium 140 (136-145) mmol/L Potassium 3.9 (3.5-5.1) mmol/L Chloride 104 (98-107) mmol/L Carbon Dioxide 26.4 (21.0-32.0) mmol/L Anion Gap 13.5 BUN 19.0 H (7.0-18.0) mg/dL Creatinine 0.88 (0.70-1.30) mg/dL Est GFR ( Amer) >60 (>=60) Est GFR (Non-Af Amer) >60 (>=60) BUN/Creatinine Ratio 21.6 Glucose 95 (74-106) mg/dL Calcium 9.0 (8.5-10.1) mg/dL Total Bilirubin 0.5 (0.2-1.0) mg/dL AST 25 (15-37) U/L ALT 24 (16-63) U/L Alkaline Phosphatase 92 (46-116) U/L Troponin I High Sens <4.0 L (4.0-76.1) pg/mL Total Protein 7.5 (6.4-8.2) g/dL Albumin 3.9 (3.4-5.0) g/dL Globulin 3.6 g/dL Albumin/Globulin Ratio 1.1 Lipase 40.0 (16.0-77.0) U/L Imaging Data CT scan - chest: Radiologist's impression: ITS Impressions Chest CTA 04/30/24 16:25 IMPRESSION:No evidence of aortic dissection, pulmonary embolus or acute intrathoracic abnormality. Circumferential wall thickening of the distal esophagus, likely representing esophagitis. Correlation with GI endoscopy is recommended. Electronically authenticated by: MEDINA ZIEGLER Date: 04/30/2024 18:26 ECG Data Attestation: I personally reviewed and interpreted this ECG as follows: (Normal sinus rhythm. No STEMI. Normal QTc.) Heart Score History: Slightly/Non-Suspicious ECG: Normal Age: <45 years Risk Factors: No Risk Factors Troponin: <Normal Limit Total Heart Score Recommendations & Risks:: 0 Discharge Plan Discharge Chief Complaint: Chest Pain Clinical Impression: Chest pain, Esophagitis Patient Disposition: Still a Patient Prescriptions / Home Meds: No Action sertraline 100 mg tablet 100 mg PO DAILY Print Language: Zambian Referrals: Bhavik Walton MD [Primary Care Provider] - 1 week
[2024-04-30 17:03] LABS: Basophils Absolute Auto 0.1 10^3/uL (0.0-0.1); Basophils Percent Auto 1.1 % (0.2-2.0); Eosinophils Absolute Auto 0.7 10^3/uL (0.0-0.7); Eosinophils Percent Auto 7.3 % (0.9-7.0); Hematocrit 43.7 % (42.0-54.0); Hemoglobin 15.5 g/dL (14.0-18.0); Immature Granulocytes Abs Auto 0.01 10^3/uL (0.00-0.03); Immature Granulocytes Pct Auto 0.1 % (0.0-0.5); Lymphocytes Absolute Auto 3.6 10^3/uL (1.2-3.8); Lymphocytes Percent Auto 35.4 % (20.5-60.0); Mean Corpuscular HGB Conc 35.5 g/dL (29.9-35.2); Mean Corpuscular Hemoglobin 33.2 pg (25.9-34.0); Mean Corpuscular Volume 93.6 fL (80.0-94.0); Mean Platelet Volume 9.4 fL (9.5-13.5); Monocytes Absolute Auto 1.4 10^3/uL (0.3-0.8); Monocytes Percent Auto 13.4 % (1.7-12.0); Neutrophils Absolute Auto 4.4 10^3/uL (1.4-6.5); Neutrophils Percent Auto 42.7 % (43.0-75.0); Platelet Count 519 10^3/uL (150-450); Red Blood Count 4.67 10^6/uL (4.70-6.10); Red Cell Distribution Width 11.9 % (11.0-15.0); White Blood Count 10.2 10^3/uL (4.0-11.0)
[2024-04-30 17:18] LABS: Alanine Aminotransferase 24 U/L (16-63); Albumin Globulin Ratio 1.1; Albumin Level 3.9 g/dL (3.4-5.0); Alkaline Phosphatase 92 U/L (46-116); Anion Gap 13.5; Aspartate Amino Transferase 25 U/L (15-37); BUN Creatinine Ratio 21.6; Bilirubin Total 0.5 mg/dL (0.2-1.0); Carbon Dioxide 26.4 mmol/L (21.0-32.0); Chloride 104 mmol/L (98-107); Estimated GFR (African America >60 (>=60); Estimated GFR (Non-African Ame >60 (>=60); Globulin 3.6 g/dL; Glucose 95 mg/dL (74-106); Potassium 3.9 mmol/L (3.5-5.1); Sodium 140 mmol/L (136-145); Total Protein 7.5 g/dL (6.4-8.2); Troponin I High Sensitivity <4.0 pg/mL (4.0-76.1)
[2024-04-30 17:30] LABS: Partial Thromboplastin Time 28.4 sec (22.3-36.2); Prothrombin Time 10.6 sec (9.0-11.6)
[2024-04-30 19:21] LABS: Troponin I High Sensitivity 4.5 pg/mL (4.0-76.1)
== END 2024-04-30 19:53 | disposition home or self-care (01) ==
PROVIDERS: Student in an Organized Health Care Education/Training Program; Emergency Provider Internal Medicine; PCP Family Medicine
DX: K20.90 Esophagitis, unspecified without bleeding (principal)
CPT/HCPCS: 36415; 71275; 80053; 83690; 84484; 85025; 85610; 85730; 93005; 96374; 96375; 99285; J2270; J2405; Q9967